=== PATIENT | female | born 1980 | race Caucasian/White ===

== ENCOUNTER 2016-07-16 01:08 | Emergency (ER) | payer OTHER ==
[~2016-07-16 01:08] MED LIST: NAPR220T95 PO; Z.0.BCPILL PO
[2016-07-16 01:12] VITALS: BP 121/80; PULSE 78; RESP 20; TEMP 98.3; O2SAT 98
[2016-07-16] MEDS ORDERED: PROPARACAINE HCL 0.5% OPHT SOLN 15 ML BTL RIGHT EYE ONE (01:15)
--- NOTE | 2016-07-16 01:16 | PD ---
HPI Chief Complaint: eye injury Time Seen by Provider: 01:12 Travel History International Travel<30 days: No Contact w/Intl Traveler<30days: No Traveled to known affect area: No History of Present Illness HPI 36 old female presents to the emergency department by private vehicle for evaluation of right eye pain. According the patient just prior to arrival to the emergency department she was removing eye makeup and accidentally applied non-acetone nail [place] remover to her eye. Patient states she immediately felt a burning sensation looked at the bottle and saw should use non-acetone nail [place] remover and immediately rinsed her eye with water. Patient continues to have a burning sensation dry no visual disturbance. Patient presents now for further evaluation. Patient denies any significant past history other than or nerve transposition in the past. Tetanus status is current. [facility] Past Medical History Narrative Medical Ulnar nerve transposition no tobacco use nursing notes reviewed Immunizations Current: Yes Social History Alcohol Use: No Tobacco Use: No Substance Use: No Allergies-Medications (Allergen,Severity, Reaction): Coded Allergies: No Known Allergies (Unverified , 01/02/16) Reported Meds & Prescriptions Reported Meds & Active Scripts Active Reported Aleve (Naproxen Sodium) 220 Mg Tab 220 Mg PO BID PRN Control Pills (Miscellaneous Medication) Tab 1 Tab PO DAILY Review of Systems Except as stated in HPI: all other systems reviewed are Neg Physical Exam Narrative GENERAL: Well-developed well-nourished female in no acute distress no respiratory distress SKIN: Warm and dry. HEAD: Normocephalic. EYES: No scleral icterus. No injection or drainage. Right eye injection; he pulled equal round reactive to light extra muscles intact. Fluorescein stain no uptake no corneal abrasion no ulceration no visible foreign no dendritic changes Data Data Last Documented VS Vital Signs Date Time Temp Pulse Resp B/P Pulse Ox O2 Delivery O2 Flow Rate FiO2 07/16/16 01:12 98.3 78 20 121/80 98 Orders Proparacaine 0.5% Opth Soln (Alcaine 0.5 (07/16/16 01:15) Eye Irrigation (07/16/16 01:12) MDM Medical Decision Making Medical Screen Exam Complete: Yes Emergency Medical Condition: Yes Medical Record Reviewed: Yes Differential Diagnosis Chemical burn, corneal abrasion, chemical conjunctivitis, chemosis Narrative Course Site was evaluated with direct inspection visual acuity performed and fluorescein stain performed poison control was contacted and recommends eye irrigation no further intervention tetanus status is current R 20/25; L 20/20; B 20/20 Physician Communication Physician Communication discussed w/ case with Dr Danny Singh -- call office in AM for appointment Diagnosis Primary Impression: Chemical conjunctivitis of right eye Referrals: Transfer Operator call for appointment Additional Instructions: Avoid rubbing the eye May use saline eyedrops for comfort purposes Follow-up with shuttler Return the emergency department for any concerns or change in condition Disposition: 01 DISCHARGE HOME Condition: Stable Michell Trevino MD Jul 16, 2016 01:16
== END 2016-07-16 02:33 | disposition home or self-care (01) ==
LOC: NEPC 01:08
DX: H10.211 Acute toxic conjunctivitis, right eye (principal)
CPT/HCPCS: 99283